=== PATIENT | female | born 1950 | race American Indian/Alaskan Native ===

== ENCOUNTER 2018-08-20 13:29 | Outpatient (CLI) | payer MEDICARE, OTHER ==
--- NOTE | 2018-08-20 15:39 | Mammography Report ---
Screening mammogram: Routine views are obtained. The positioning is not optimal with diminished tissue included in the right CC projection as well as a left MLO projection. There is an intermediate density fibroglandular pattern with mildly increased fibroglandular tissue in the right breast compared to the left. Scattered nodules are present bilaterally some of which are characteristic of lymph nodes. None are suspicious. No suspicious calcifications. CAD used. Impression: No suspicious findings. Recommendation: Annual mammogram followup. An attempt will be made however to obtain this patient's prior exams for comparison and if successful an amended report will be issued. BI-RADS CATEGORY: 2 = Benign ACR BI-RADS MAMMOGRAPHIC CODES: 0 = Needs additional imaging evaluation; 1 = Negative; 2 = Benign; 3 = Probably benign; 4 = Suspicious; 5 = Malignant; 6 = Known biopsy-proven malignancy COMMENT: 1. Dense breast tissue, i.e., adenosis, fibrocystic changes, etc., may obscure an underlying neoplasm. 2. Approximately 10% of cancers are not detected with mammography. 3. A negative mammography report should not delay biopsy if a clinically suspicious mass is present.
== END 2018-08-20 13:30 | disposition home or self-care (01) ==
LOC: MAMMO 13:29
PROVIDERS: ATTEND Internal Medicine
DX: Z12.31 Encounter for screening mammogram for malignant neoplasm of breast (principal); I10 Essential (primary) hypertension
CPT/HCPCS: 77067